=== PATIENT | female | born 1945 | race Two or more races ===

== ENCOUNTER 2017-11-26 12:48 | Inpatient (IN) | payer OTHER ==
[~2017-11-26] VITALS: Ht 137.2 cm; Wt 54.4 kg
[~2017-11-26 12:48] MED LIST: ENALAPRIL MALEA10 MG; ENALAPRIL MALEA10 MG PO; FLONASE16 G1 NS; LANTUS SOL100 UNIT/1 SQ; MEDROLPACK PO; METFORMIN HCL1000 MG PO; SYNTHROID50 MCG PO; TAGAMET300 MG PO; VITAMIN B-12500 MC3 SL; ZOCOR40 MG PO; ZYRTEC10 MG PO
== END 2017-12-01 14:00 | disposition home or self-care (01) | DRG 638 ==
LOC: MEDI 12:48
PROC: 3E0F7GC Introduction of Other Therapeutic Substance into Respiratory Tract, Via Natural or Artificial Opening (ICD-10-PCS; principal; 2017-11-26)
DX: E10.65 Type 1 diabetes mellitus with hyperglycemia (principal); L03.113 Cellulitis of right upper limb; J44.9 Chronic obstructive pulmonary disease, unspecified; Z79.4 Long term (current) use of insulin; E03.8 Other specified hypothyroidism; G51.0 Bell's palsy; K52.89 Other specified noninfective gastroenteritis and colitis; J31.0 Chronic rhinitis; E86.0 Dehydration

== ENCOUNTER 2017-12-22 17:06 | Emergency (ER) | payer OTHER ==
[~2017-12-22] VITALS: Ht 144.8 cm; Wt 54.4 kg
[2017-12-22] MEDS ORDERED: HUMULIN R500 UNIT/2 SQ (17:23)
[2017-12-22] MEDS ORDERED: HUMULIN N100 UNIT/2 SQ (17:23)
== END 2017-12-22 20:28 | disposition home or self-care (01) ==
LOC: ER 17:06
DX: M54.2 Cervicalgia (principal)

== ENCOUNTER 2018-01-29 11:42 | Outpatient (CLI) | payer OTHER ==
[~2018-01-29 11:42] MED LIST changes: +HUMULIN N100 UNIT/2 SQ; +HUMULIN R500 UNIT/2 SQ
== END 2018-01-29 17:23 | disposition home or self-care (01) ==
LOC: RAD 11:42
DX: M12.831 Other specific arthropathies, not elsewhere classified, right wrist (principal); M19.031 Primary osteoarthritis, right wrist

== ENCOUNTER 2018-06-14 16:38 | Emergency (ER) | payer OTHER ==
[~2018-06-14] VITALS: Ht 144.8 cm; Wt 61.7 kg
[2018-06-14] MEDS ORDERED: ZOLOFT100 MG (16:59)
[2018-06-14] MEDS ORDERED: VASOTEC10 MG (16:59)
[2018-06-14] MEDS ORDERED: OMEPRAZOLE40 MG (16:59)
[2018-06-14] MEDS ORDERED: SYNTHROID50 MCG (17:00)
[2018-06-14] MEDS ORDERED: CLONAZEPAM0.5 M1 (17:01)
[2018-06-14] MEDS ORDERED: AMARYL (17:01)
== END 2018-06-14 22:07 ==
LOC: ER 16:38
DX: E11.649 Type 2 diabetes mellitus with hypoglycemia without coma (principal)

== ENCOUNTER 2019-10-10 00:23 | Inpatient (IN) | payer OTHER ==
[~2019-10-10] VITALS: Ht 149.9 cm; Wt 72.6 kg
[~2019-10-10 00:23] MED LIST changes: +AMARYL; +CLONAZEPAM0.5 M1; +OMEPRAZOLE40 MG; +SYNTHROID50 MCG; +VASOTEC10 MG; +ZOLOFT100 MG
--- NOTE | 2019-10-10 00:45 | NUR ---
PATIENT IS RECIEVED ALERT AND ORIENTATED X3 WITH RESPIRATORY DIFICULTY. PATIENT IS PALE AND HAS TROUBLE SPEAKING IN COMPLETE SENTENCES. PATIENT'S VITALES ARE TAKEN AND PRESENTED TO DR. STODDARD IMMEDIATELY. PATIENT IS PLACED IN CRITICAL CARE UNIT IN A WHEEL CHAIR. PATIENT IS THEN PLACED ON BED CONECTED TO TELEMTRY AND OXIMETRY FOR CHANGES IN HER VITALS.
--- NOTE | 2019-10-10 01:00 | NUR ---
SE RECIBE PT CON DIFICULTAD RESPIRATORIA, SAO2 86% EN CAMA 2 DE ICU-2, CONECTADA A MONITOR CARDIACO Y OXIMETRIA DE PULSO. PT EVALUADA POR DR STODDARD QUIEN [place]. SE LE COLECTAN MUESTRAS Y SE CANALIZA BAJO MEDIDAS ASEPTICAS, SE LE ADMINISTRAN MEDICAMENTOS LD PRESCRITOS PT TOLERA. SE LE COMIENZA TERAPIA DE PROVENTYL 0.83% POR ORDEN DR STODDARD. 0110PT TOLERA PRESENTA SAO2 98% SE NOTIFICAN ABGS Y TERAPIAS A MR PORTER. SE MANTIENE A PT EN OSBERVACION CONTINUA POR CAMBIOS.
--- NOTE | 2019-10-10 04:27 | NUR ---
0140 PT CON CANULA NASAL A 3LT SAO2 90% REFIERE FLATA DE AIRE, SE OBSERVAN RESPIRACIONES ABDOMINALES Y SE AUSCULTA SIBILANCIAS. MR PORTER REALIZA ABGS, DR STODDARD ORDENA VENTURY MASK AL 50%. 0200 PT SAO2 84% CON VENTURY MASK, SE LE COLOCA NON REBREATHING MASK AL 100% POR ORDEN DE DR STODDARD. SE LE REALIZA DXT [303MG/DL] SE ORIENTA A PT Y SE LE ADMINISTRAN 7 U HUMULIN R IV POR ORDEN DE DR STODDARD, PT TOLERA. PT CONTINUA CON DIFICULTAD RESPIRATORIA, SAO2 82%, SE NOTIFICA A DR STODDARD QUIEN ORDENA TERAPIA PROVENTYL STAT, ORDEN SE EJECUTA POR MR PORTER. 0218PT NO TOLERA TRATAMIENTO, REFIERE FALTA DE AIRE, SAO2 80%, SE LE ADMINISTRA 0.25MG EPINEFRINA SUBCUTANEA POR ORDEN DE DR STODDARD EN BRAZO RT. 0223 SE ADMINISTRA 2DA EPINEFRINA 0.25MG SUBCUTANEO. 0230 DR STODDARD COMIENZA ENTUBACION PREVENTIVA, SE ASISTE JUNTO A MR PORTER DE TERAPIA RESPIRATORIA. SE LE ADMINISTRA 5MG VERSED IV A PT Y SE LE ASISTE VENTILATORIAMENTE CON AMBU. 0239 SE ADMINISTRA 3RA EPINEFRINA 0.25MG SUBCUTANEO Y DR STODDARD ENTUBA A PTE. SE FIJA TUBO Y SE CONECTA A VENTILADOR MECANICO. 0250 SE ADMINISTRA VERSED 5MG IV. PT TOLERA. 0300 SE LE REALIZA RX A PTE. SE LE INSERTA NGT POR JULIO CESAR RT Y SE VERIFICA POSICION POR AUSCULTACION, SE ESCUCHA BURBUJEO GASTRICO. SE LE INSERTA LUND # 16 BAJO MEDIDAS ESTERILES PT TOLERA, PRESENTA EGRESO DE ORINA COLOR AMARILLO BRENT. SE LE COLECTAN MUESTRAS DE UA Y UC. 0400 SE RESTRINGE PT DE EXTREMIDADES SUPERIORES. PT TOLERA SE MANTIENE EN OBSERVACION CONTINUA POR CAMBIOS. SAO2 100%.
--- NOTE | 2019-10-10 05:51 | NUR ---
SE LE REALIZA DXT, SE LE COLECTA 2 MUESTRA DE TROPONINA BAJO MEDIDAS ASEPTICAS, PT TOLERA. SE OBSERVA PT CALMADA, ALERTA, RESPONDE A LLAMADO Y SIGUE INSTRUCCIONES. SE MANTIENE EN OBSERVACION POR CAMBIOS, AL MOMENTO RECIBIENDO DRIP DE TRIDIL 50MG/250ML EL CUAL SE TITULA A 2ML/HR. SE MIDE BP MANUAL 150/70.
--- NOTE | 2019-10-10 06:17 | NUR ---
PT CONSULTADA CON DR RAJEEV DIETZ Y DR GIOVANNI ANAND. SE PROVEE COMODIDAD A PTE Y SE PERMITE VISITA DE FAMILIARES A LOS CUALES SE LES ORIENTA SOBRE TX. MR PORTER REALIZA ABGS. SE MIDE I/O Y SE DOCUMENTA. SE ENTREGA PT A PROXIMO TURNO PARA CONTINUIDAD EN TX.
[2019-10-21] MEDS ORDERED: GLIMEPIRIDE1 MG (08:29)
== END 2019-10-25 15:22 | disposition home or self-care (01) | DRG 208 ==
LOC: ER 00:23 → ICU-2 07:12 → ICU 07:12 → SURG 10-22 15:04
PROVIDERS: ADMIT Internal Medicine Cardiovascular Disease
PROC: 0BH17EZ Insertion of Endotracheal Airway into Trachea, Via Natural or Artificial Opening (ICD-10-PCS; principal; 2019-10-10)
PROC: 5A1945Z Respiratory Ventilation, 24-96 Consecutive Hours (ICD-10-PCS; 2019-10-10)
PROC: B246ZZZ Ultrasonography of Right and Left Heart (ICD-10-PCS; 2019-10-10)
PROC: 3E0F7GC Introduction of Other Therapeutic Substance into Respiratory Tract, Via Natural or Artificial Opening (ICD-10-PCS; 2019-10-10)
PROC: 4A033R1 Measurement of Arterial Saturation, Peripheral, Percutaneous Approach (ICD-10-PCS; 2019-10-10)
PROC: 4A12X4Z Monitoring of Cardiac Electrical Activity, External Approach (ICD-10-PCS; 2019-10-10)
PROC: 0T9B70Z Drainage of Bladder with Drainage Device, Via Natural or Artificial Opening (ICD-10-PCS; 2019-10-10)
PROC: 0DH67UZ Insertion of Feeding Device into Stomach, Via Natural or Artificial Opening (ICD-10-PCS; 2019-10-10)
PROC: 3E0G76Z Introduction of Nutritional Substance into Upper GI, Via Natural or Artificial Opening (ICD-10-PCS; 2019-10-10)
DX: J96.21 Acute and chronic respiratory failure with hypoxia (principal); I50.23 Acute on chronic systolic (congestive) heart failure; I21.4 Non-ST elevation (NSTEMI) myocardial infarction; L03.113 Cellulitis of right upper limb; E87.3 Alkalosis; E44.0 Moderate protein-calorie malnutrition; E87.6 Hypokalemia; E10.65 Type 1 diabetes mellitus with hyperglycemia; I11.0 Hypertensive heart disease with heart failure; I08.0 Rheumatic disorders of both mitral and aortic valves; I25.10 Atherosclerotic heart disease of native coronary artery without angina pectoris; Z99.81 Dependence on supplemental oxygen; Z74.01 Bed confinement status; Z79.4 Long term (current) use of insulin

== ENCOUNTER 2019-11-01 11:42 | Emergency (ER) | payer OTHER ==
[~2019-11-01] VITALS: Ht 144.8 cm; Wt 62.1 kg
[~2019-11-01 11:42] MED LIST changes: +GLIMEPIRIDE1 MG
[2019-11-01] MEDS ORDERED: JENTADUETO 2.51 EAC2 PO (13:08)
[2019-11-01] MEDS ORDERED: ZESTRIL5 MG PO (13:09)
[2019-11-01] MEDS ORDERED: PLAVIX75 MG PO (13:09)
[2019-11-01] MEDS ORDERED: OMEPRAZOLE-BIC1 EAC1 PO (13:09)
[2019-11-01] MEDS ORDERED: PEPCID AC10 MG (13:10)
[2019-11-01] MEDS ORDERED: LASIX40 MG PO (13:10)
[2019-11-01] MEDS ORDERED: TOPROL XL25 M1 PO (13:11)
[2019-11-01] MEDS ORDERED: ZOLOFT100 MG PO (13:11)
[2019-11-01] MEDS ORDERED: ACTOS30 MG PO (13:11)
[2019-11-01] MEDS ORDERED: FOLIC ACID1 MG PO (13:12)
[2019-11-01] MEDS ORDERED: SYNTHROID50 MCG PO (13:12)
[2019-11-01] MEDS ORDERED: ZOCOR40 MG PO (13:13)
== END 2019-11-01 15:19 | disposition home or self-care (01) ==
LOC: ER 11:42
DX: H66.91 Otitis media, unspecified, right ear (principal)

== ENCOUNTER 2019-11-24 14:29 | Emergency (ER) | payer OTHER ==
[~2019-11-24] VITALS: Ht 152.4 cm; Wt 63.5 kg
[~2019-11-24 14:29] MED LIST changes: +ACTOS30 MG PO; +FOLIC ACID1 MG PO; +JENTADUETO 2.51 EAC2 PO; +LASIX40 MG PO; +OMEPRAZOLE-BIC1 EAC1 PO; +PEPCID AC10 MG; +PLAVIX75 MG PO; +TOPROL XL25 M1 PO; +ZESTRIL5 MG PO; +ZOLOFT100 MG PO
== END 2019-11-24 20:04 | disposition home or self-care (01) ==
LOC: ER 14:29
DX: R06.02 Shortness of breath (principal)

== ENCOUNTER 2020-05-26 10:39 | Outpatient (CLI) | payer OTHER | END 2020-05-26 10:47 | disposition home or self-care (01) | LOC: LAB 10:39 | PROVIDERS: ATTEND Internal Medicine Cardiovascular Disease | DX: D64.0 Hereditary sideroblastic anemia (principal) ==

== ENCOUNTER 2020-06-04 18:30 | Emergency (ER) | payer OTHER ==
[~2020-06-04] VITALS: Ht 149.9 cm; Wt 63.5 kg
== END 2020-06-05 00:01 | disposition home or self-care (01) ==
LOC: ER 18:30
DX: R60.0 Localized edema (principal); Z20.828 Contact with and (suspected) exposure to other viral communicable diseases

== ENCOUNTER 2021-04-16 01:50 | Inpatient (IN) | payer OTHER ==
[~2021-04-16] VITALS: Ht 149.9 cm; Wt 60.8 kg
[2021-04-16] MEDS ORDERED: LANTUS SOL100 UNIT/1 (02:02)
== END 2021-04-18 12:40 | disposition designated cancer center or children's hospital (05) | DRG 282 ==
LOC: ER 01:50 → ICU-2 10:59
PROVIDERS: ADMIT Internal Medicine Cardiovascular Disease; ATTEND Internal Medicine Cardiovascular Disease
PROC: B24BZZZ Ultrasonography of Heart with Aorta (ICD-10-PCS; principal; 2021-04-16)
PROC: 4A033R1 Measurement of Arterial Saturation, Peripheral, Percutaneous Approach (ICD-10-PCS; 2021-04-16)
PROC: 3E0F7SF Introduction of Other Gas into Respiratory Tract, Via Natural or Artificial Opening (ICD-10-PCS; 2021-04-16)
DX: I21.4 Non-ST elevation (NSTEMI) myocardial infarction (principal); I24.9 Acute ischemic heart disease, unspecified; I10 Essential (primary) hypertension; Z20.822 Contact with and (suspected) exposure to COVID-19